=== PATIENT | female | born 1990 | race Caucasian/White ===

== ENCOUNTER 2019-01-14 00:26 | Emergency (ER) | payer OTHER ==
[2019-01-14 00:39] VITALS: BP 112/76
[2019-01-14] MEDS ORDERED: IBUPROFEN PO ONE (04:45)
[2019-01-14] MEDS ORDERED: FLEXERIL PO ONE (04:45)
--- NOTE | 2019-01-14 04:49 | Emergency Department Report ---
HPI - General Chief Complaint: Neck Pain/Injury Time Seen by Provider: 01/14/19 04:44 - HPI HPI: 28-year-old female presents to ED complaining of left showed a neck and back pain that started yesterday morning. Patient states that her and her significant other had been moving furniture this past week. Patient describes pain as shooting pain down her left shoulder. She denies any trauma, injuries to the neck back or head. Patient states that her left shoulder as being causing her some pain for the past couple of months. Patient states that this morning he got worse. Patient says she has tried some neck and back exercises as well as 60 minutes of 100 mg Motrin with no relief. ED Past Medical Hx - Past Medical History Previous Medical History?: No - Surgical History Past Surgical History?: No - Social History Smoking Status: Former Smoker Substance Use Type: None - Medications Home Medications: Home Medications Medication Instructions Recorded Confirmed Last Taken Type Cyclobenzaprine [Flexeril 10 MG 10 mg PO QHS #20 tablet 01/14/19 Unknown Rx TAB] Ibuprofen [Motrin 800 MG tab] 800 mg PO TID #30 tablet 01/14/19 Unknown Rx ED Review of Systems ROS: Stated complaint: SHOULDER AND NECK PAIN PINCHING Other details as noted in HPI Comment: All other systems reviewed and negative Physical Exam - Physical Exam Vital Signs: Vital Signs 01/14/19 00:38 Temperature 98.2 F Pulse Rate 91 H Respiratory 18 Rate Blood Pressure 112/76 O2 Sat by Pulse 98 Oximetry Physical Exam: GENERAL: Alert and oriented x3, no apparent distress, Normal Gait, atraumatic. HEAD: Head is normocephalic and a-traumatic. NECK: Supple. Non edematous, No lymphadenopathy or thyromegaly. No C-spine tenderness, full range of motion BACK: Full range of motion, no spinal tenderness, Tenderness to palpation of the trapezius muscles muscles of the back EXTREMITIES/MUSCULOSKELETAL: No cyanosis, clubbing, rash, lesions or edema. Full ROM bilaterally. NEUROLOGIC: The patient is cooperative with no focal neurologic deficits. SKIN: Warm and dry, No lesions, No ulceration or induration present. ED Course Vital Signs 01/14/19 00:38 Temperature 98.2 F Pulse Rate 91 H Respiratory 18 Rate Blood Pressure 112/76 O2 Sat by Pulse 98 Oximetry ED Medical Decision Making - Medical Decision Making 36-year-old female presents to ED with muscle strain/muscle spasm of the trapezius muscle ED course: Patient received Motrin and Flexeril in ED. Vital signs are normal patient is in no acute distress Discussed with patient follow-up with primary care physician. Discussed the patient and take medications as prescribed. Patient has no neurological deficit. Patient is alert and oriented 3 and u nderstands all instructions given. Discussed drowsiness effect of Flexeril makes her drowsy and not to operate machinery while taking flexeril Critical care attestation.: If time is entered above; I have spent that time in minutes in the direct care of this critically ill patient, excluding procedure time. ED Disposition Clinical Impression: Cervical radiculopathy, Muscle strain Disposition: TO HOME OR SELFCARE Is pt being admited?: No Does the pt Need Aspirin: No Condition: Stable Instructions: Muscle Strain (ED), Trigger Point Pain (ED), Musculoskeletal Pain (ED), Heat Pack Application (ED) Additional Instructions: Make sure to follow up with the primary care physician as discussed. Take all your medications as you've been prescribed. If you have any worsening symptoms or develop new symptoms please return to ED immediately. Prescriptions: Cyclobenzaprine [Flexeril 10 MG TAB] 10 mg PO QHS #20 tablet Ibuprofen [Motrin 800 MG tab] 800 mg PO TID #30 tablet [place]: [place] [Primary Care Provider] - 3-5 Days CLARK HUGO MD [Staff Physician] - 3-5 Days SHERRON PHILLIP MD [Staff Physician] - 3-5 Days [facility] [Provider Group] - 3-5 Days Forms: Accompanied Note, Work/School Release Form(ED) Time of Disposition: 04:49
== END 2019-01-14 05:07 | disposition home or self-care (01) ==
LOC: ED 00:26
DX: S16.1XXA Strain of muscle, fascia and tendon at neck level, initial encounter (principal); M54.12 Radiculopathy, cervical region; X58.XXXA Exposure to other specified factors, initial encounter; Y93.89 Activity, other specified; Y92.89 Other specified places as the place of occurrence of the external cause; Y99.8 Other external cause status
CPT/HCPCS: 99282